=== PATIENT | male | born 1960 | race Caucasian/White ===

== ENCOUNTER 2017-02-13 09:34 | Day surgery (SDC) | payer BC ==
[~2017-02-13] VITALS: Ht 177.8 cm; Wt 102.1 kg
[2017-02-13] VITALS (7 sets, daily range): BP systolic 114–125; BP diastolic 61–81; PULSE 53–71; TEMP 97.3–98.5
[2017-02-13] MEDS ORDERED: COZAAR100 MG PO (10:52)
[2017-02-13] MEDS ORDERED: EPA FISH OIL1 SGL PO (10:53)
[2017-02-13] MEDS ORDERED: VITAMIN D31000 I1 PO (10:54)
[2017-02-13] MEDS ORDERED: B-12 100 MCG PO (10:56)
[2017-02-13] MEDS ORDERED: ASPIRIN 81M81 MG/TA2 PO (10:57)
[2017-02-13] MEDS ORDERED: HCTZ 25MG TAB25 MG PO (10:57)
[2017-02-13] MEDS ORDERED: ROXICODONE 55 MG/TAB PO (17:10)
== END 2017-02-13 18:10 | disposition home or self-care (01) ==
LOC: SDCO 09:34
DX: K43.9 Ventral hernia without obstruction or gangrene (principal); I10 Essential (primary) hypertension; R12 Heartburn; M19.90 Unspecified osteoarthritis, unspecified site; Z86.718 Personal history of other venous thrombosis and embolism; Z87.01 Personal history of pneumonia (recurrent)
CPT/HCPCS: A4315; C1713; C1781; J0690; J1100; J1170; J1885; J2405; J2704; J3010; J7120

== ENCOUNTER → 2018-04-24 | Outpatient (CLI) | payer BC ==
[~2018-04-24] MED LIST: ASPIRIN 81M81 MG/TA2 PO; B-12 100 MCG PO; COZAAR100 MG PO; EPA FISH OIL1 SGL PO; HCTZ 25MG TAB25 MG PO; ROXICODONE 55 MG/TAB PO; VITAMIN D31000 I1 PO
== END ==
LOC: COL.RAD 13:56
DX: M25.551 Pain in right hip (principal)
CPT/HCPCS: J3301; Q9967